=== PATIENT | female | born 1930 | race Caucasian/White ===

== ENCOUNTER 2017-08-21 15:31 | Emergency (ER) | payer MEDICARE ==
[2017-08-27] MEDS ORDERED: AMLO1CAP11 PO (00:36)
[2017-08-27] MEDS ORDERED: FESO4TAB PO (00:36)
[2017-08-27] MEDS ORDERED: CETI10CA5 PO (00:36)
[2017-08-27] MEDS ORDERED: CARB15DR OP (00:36)
[2017-08-27] MEDS ORDERED: CYAN100099 PO (00:36)
[2017-08-27] MEDS ORDERED: ASPI-1012 PO (00:36)
[2017-08-27] MEDS ORDERED: SIMV40TA5 PO (00:36)
[2017-08-27] MEDS ORDERED: CALC-724 PO ×2 (00:36)
[2017-08-27] MEDS ORDERED: METF500T6 PO (00:36)
[2017-08-27] MEDS ORDERED: GARL1000 PO (00:36)
[2017-08-27] MEDS ORDERED: MEMA1TAB2 PO (00:36)
[2017-08-27] MEDS ORDERED: LYSI500T PO (00:36)
== END 2017-08-21 16:58 | disposition home or self-care (01) ==
LOC: EDH 15:31
DX: S00.03XA Contusion of scalp, initial encounter (principal); E11.9 Type 2 diabetes mellitus without complications; I10 Essential (primary) hypertension; E78.5 Hyperlipidemia, unspecified; M85.80 Other specified disorders of bone density and structure, unspecified site; Z88.1 Allergy status to other antibiotic agents; Z88.0 Allergy status to penicillin; Z88.2 Allergy status to sulfonamides; Z88.8 Allergy status to other drugs, medicaments and biological substances; W01.0XXA Fall on same level from slipping, tripping and stumbling without subsequent striking against object, initial encounter; Y93.89 Activity, other specified; Y92.090 Kitchen in other non-institutional residence as the place of occurrence of the external cause; Y99.8 Other external cause status
CPT/HCPCS: 70450